=== PATIENT | female | born 1995 | race Caucasian/White ===

== ENCOUNTER 2022-08-18 12:33 | Emergency (ER) | payer MEDICAID, SELFPAY ==
[2022-08-18 13:40] VITALS: BP 123/76; PULSE 68; RESP 18; TEMP 36.8; O2SAT 99; BMI 25.0
--- NOTE | 2022-08-18 13:56 | EXP.UTC ---
Discharge Plan Disposition Patient Disposition: Home, Self-Care Condition: Good Prescriptions Prescriptions: New amoxicillin 875 mg tablet 875 mg PO Q12H Qty: 20 0RF Referrals Follow up/Referrals: Monty Colon [Primary Care Provider] - See instructions Activity Restrictions/Add. Instructions Additional Instructions/Restrictions: *Monitor Temp, Over the counter Motrin or Tylenol as directed/as needed Tylenol every 4 hours and Motrin every 6 hours (as long as your family doctor has told you that you can take it) for fever or pain. and straight to ER if unable to lower temp less than 101.0 after medication given *Warm salt water gargles may help to soothe the throat *Throat Lozenges? *Warm fluids like tea with honey may help to soothe the throat? *Sleep elevated *Humidifier/Vaporizer Take medication as prescribed Follow up IMMEDIATELY for new or worsening symptoms or no Noticeable improvement over the next 48-72 hours. 911 for difficulty breathing or swallowing Clinical Impressions Clinical Impression: Otitis media Instructions Patient Instructions: Middle Ear Infection, Amoxicillin Discharge ED Provider: Shannon Mcintosh [facility] General Stated complaint: Ear pain both ears Time Seen by Provider: 08/18/22 13:56 History of Present Illness Provider Complaint: Patient states that she has been having bilateral ear pain for several days that has continued to get worse States that she used some left over ear drops but hasnt help much States that today her left ear was feeling worse so she came in Related Data Previous Rx's Medication Instructions Recorded amoxicillin 875 mg tablet 875 mg PO Q12H #20 tabs 08/18/22 Allergies Allergy/AdvReac Type Severity Reaction Status Date / Time No Known Allergies Allergy Verified 08/18/22 14:01 [facility] Disclaimer: The information contained in this section may have been updated after the patient was seen, as this information can be updated by other users. Medical History (Updated 08/18/22 @ 14:05 by Shannon Mcintosh APRN) Anxiety Depression Surgical History (Updated 08/18/22 @ 14:00 by Juli Zarate RN) History of ear surgery History of tympanostomy tube placement Social History (Updated 08/18/22 @ 14:00 by Juli Zarate RN) Smoking Status: Unknown if ever smoked alcohol intake: never current occupational status: other Travel in the last 8 weeks: None ROS Obtained: Yes All systems reviewed & no additional complaints except as documented and Yes Systems reviewed as appropriate & no additional complaints except as documented Constitutional Constitutional: Reports system reviewed and no additional complaints, except as documented and Reports as per HPI ENT Ears, Nose, Mouth, and Throat: Reports system reviewed and no additional complaints, except as documented, Reports as per HPI and Reports otalgia Cardiovascular Cardiovascular: Reports system reviewed and no additional complaints, except as documented and Reports as per HPI Respiratory Respiratory: Reports system reviewed and no additional complaints, except as documented and Reports as per HPI Gastrointestinal Gastrointestingal: Reports system reviewed and no additional complaints, except as documented and as per HPI Genitourinary Female Genitourinary: Reports system reviewed and no additional complaints, except as documented and Reports as per HPI Physical Exam General General appearance: alert and in no apparent distress Expanded ENT Exam TM/Canal exam: Right TM: loss of landmarks and Bilateral TM: erythema Respiratory Respiratory exam: Present normal lung sounds bilaterally; Absent respiratory distress or wheezes Cardiovascular Cardiovascular exam: Present regular rate, normal rhythm and normal heart sounds Abdominal Exam Abdominal exam: Present soft and normal bowel sounds; Absent distention or tenderness Neurological Exam Neurological exam: P
[2022-08-18 14:01] VITALS: BP 123/76; PULSE 68; RESP 18; TEMP 36.8; O2SAT 99
== END 2022-08-18 14:03 | disposition home or self-care (01) ==
PROVIDERS: Emergency Provider Nurse Practitioner; PCP Internal Medicine
DX: H66.90 Otitis media, unspecified, unspecified ear (principal)
CPT/HCPCS: 99212; 99213; G0463

== ENCOUNTER 2025-04-27 18:06 | Emergency (ER) | payer SELFPAY ==
[2025-04-27 18:12] VITALS: BP 146/91; PULSE 99; O2SAT 95
[2025-04-27 18:15] VITALS: BP 146/91; PULSE 107; RESP 16; TEMP 36.6; O2SAT 100; BMI 20.9
--- OUTSIDE RECORDS SUMMARY | 2025-04-27 18:21 | XMS_ITS | Encounter Summary ---
Author Organization [employer] ([place], [place], [place], [place]) Address [address] [place] [address] Care Team Providers Care Perinatal Coordinator Name Role Phone Unavailable Primary Care Provider Unavailabl e Encounter Details Date Type Department Care Team (Late st Contact Info) Description 03/09/2019 Transcribed Document [facility] [place] [facility] [place] [address] ProviderCristiane MD [address] [place] [id number] Social History Tobacco Use Types Packs/Day Years Used Date Smoking Tobacco: Never Assessed Comments Unknown Sex and Gender Information Value Date Recorded Sex Assigned at Female 01/07/2022 8:18 PM CDT Legal Sex Female 6:11 PM CDT Gender Identity Female 01/07/2022 8:18 PM CDT Sexual Orientation Not on file documented as of this encounter Miscellaneous Notes * Cerner Conversion Note - Cristiane ProviderMD - 03/09/2019 4:41 AM CDT ED Discharge Entered On: 03/09/2019 4:42 EDT Performed On: 03/09/2019 4:41 EDT by Carlotta Wall Rn Discharge Process Patient Disposition : Discharge Personal Belongings With Patient : Yes Patient Education Completed : Yes Teaching Evaluation : Verbalizes understanding IV Discontinued : Not applicable Nursing Documentation Completed : Yes Carlotta Wall Rn - 03/09/2019 4:41 EDT ED Discharge Discharge To : Home with ambulatory/outpatient follow-up Mode Of Departure : Ambulatory Accompanied By : Responsible adult Discharge Instructions Reviewed With, Opportunity For Questions Given : Patient Prescriptions Given to Patient : Yes Number of Prescriptions Given : 1 Medications Given to Patient : Yes Number of Medications Given : 2 Carlotta Wall Rn - 03/09/2019 4:41 EDT documented in this encounter Plan of Treatment Not on file documented as of this encounter Visit Diagnoses Not on filedocumented in this encounter
--- OUTSIDE RECORDS SUMMARY | 2025-04-27 18:21 | XMS_ITS | Referral Summary ---
Author Organization [employer] ([place], [place], [place], [place]) Address [address] [place] [address] Care Team Providers Care Head Machinist Name Role Phone Unavailable Primary Care Provider Unavailabl e Allergies No known active allergies Medications dextroamphetami ne-amphetamine (ADDERALL XR) 10 MG 24 hr capsule Take 1 capsule (10 mg total) by mouth every morning. Max Daily Amount: 10 mg Active escitalopram oxalate (LEXAPRO) 10 MG tablet Take 1 tablet (10 mg total) by mouth daily. Active Social History Tobacco Use Types Packs/Day Years Used Date Smoking Tobacco: Never Assessed Food Insecurity Answer Date Recorded Food run out past 12 months Not on file 08/06 Food did not last past 12 months Not on file 08/20/2023 Employment Answer Date Recorded Help finding and keeping a job Not on file 0 08/20/2023 Family and Community Support Answer Jian e Recorded Help with Day to Day Activities Not on file 08/20/2023 Feeling Lonely or Isolated Not on file 08/20 Educational Attainment Answer Date Edmund rded Speak language other than Micronesian at home Not on file 08/20/2023 Want help with school or training Not on file 08/20/2023 Substance Use Answer Date Recorded Used prescription meds for non-medical reasons N ot on file 08/20/2023 Used illegal drugs past 12 months Not on file 08/20/2023 Comments Unknown Sex and Gender Information Value Date Recorded Sex Assigned at Female 01/07/2022 8:18 PM CDT Legal Sex Female 6:11 PM CDT Gender Identity Female 01/07/2022 8:18 PM CDT Sexual Orientation Not on file Last Filed Vital Signs Vital Sign Reading Time Taken Comments Blood Pressure 138/76 08/20/2023 6:05 AM EST Pulse 86 08/20/2023 6:30 AM EST Temperature - - Respiratory Rate 18 08/20/2023 5:03 AM EST Oxygen Saturation 99% 08/20/2023 6:10 AM EST Inhaled Oxygen Concentration - - Weight 59 kg (130 lb) 08/20/2023 5:03 AM EST Height 165.1 cm (5' 5 ) 08/20/2023 5:03 AM EST Body Mass Index 21.63 08/20/2023 5:03 AM EST Plan of Treatment Not on file Insurance [facility] MEDICAID
--- OUTSIDE RECORDS SUMMARY | 2025-04-27 18:21 | XMS_ITS | Clinical Summary ---
[facility] Address [address] [place] [address] Care Team Providers Care Sap Data Architect Name Role Phone Monty Colon MD Primary Care Provider [phone] Allergies No known active allergies Medications escitalopram (LEXAPRO) 10 MG tablet Take 1 tablet by mouth Daily. Active Qelbree 200 MG capsule sustained-relea se 24 hr Take 1 capsule by mouth Daily. 4 Active fluticasone (FLONASE) 50 MCG/ACT nasal spray Administer 2 sprays into the nostril(s) as directed by provider Daily. 11.1 g 4 Active busPIRone (BUSPAR) 5 MG tablet Take 1 tablet by mouth 3 times a day. 5 Active nicotine polacrilex (NICORETTE) 4 MG gum CHEW 1 GUM FOUR TIMES DAILY 5 Active Vyvanse 10 MG capsule Take 1 capsule by mouth Daily 5 Active acyclovir (ZOVIRAX) 400 MG tabletIndicatio ns:HSV (herpes simplex virus) infection Take 1 tablet by mouth Daily. 30 tablet 2 5 Active Active Problems Problem Noted Date Diagnosed Date HSV (herpes simplex virus) infection 12/08/2024 Migraine 12/08/2024 Routine gynecological examination 12/08/2024 Menorrhagia with regular cycle 12/08/2024 Acute right flank pain 08/23/2024 Assessment & Plan (08/23/2024 12:22 PM EST): 3-day history of progression of right flank pain rating to her abdomen, initially intermittent now persistent and quite severe, worse with movement, associated in the last evening with fever spikes and dry heaves, single episode of diarrhea yesterday prior to that having 4 to 5-day history of some constipation. She noted urgent treatment center yesterday where she reportedly had some pyuria and microscopic hematuria, was started empirically on Cipro 500 mg twice daily. Exam today revealing significant flank pain to percussion with significant right-sided abdominal pain. Clinical concern for an acute pyelonephritis with or without right-sided ureterolithiasis. I did discuss case with emergency room physician at [facility] will have her seen promptly for appropriate workup, noting I did not repeat any testing today given ER evaluation pending. Right lateral abdominal pain 08/23/2024 Assessment & Plan (08/23/2024 12:22 PM EST): Refer to above Pyuria 08/23/2024 Assessment & Plan (08/23/2024 12:23 PM EST): Refer to above Microscopic hematuria 08/23/2024 Assessment & Plan (08/23/2024 12:22 PM EST): Refer to above Non-recurrent acute suppurat swati otitis media of left ear without spontaneous rupture of tympanic membrane 07/01/2024 Acute non-recurrent pansinusitis 07/01/2024 Assessment & Plan (07/01/2024 5:52 PM EST): Patient with several weeks of sinus congestion, now with thick mucus production, sinus tenderness on palpation, bilateral ear pain and sinus headache. She has not used any conservative measures [id number]. On physical exam she is noted to have both a pansinusitis and left suppurative otitis media without perforation. Will treat both conditions empirically with 7-day course of twice daily Augmentin. Also treating inflammation with Flonase nasal steroid 2 sprays each nostril once daily. Patient to advise if no improvement Encounter for general adult medical examination with abnormal findings 07/22/2023 Assessment & Plan (07/22/2023 1:11 PM EST): Generally very healthy 27-year-old female, known history of ADHD being managed with medication successfully, ex-cigarette smoker now vaping nicotine attempting to stop, periodic health maintenance up-to-date including Pap smear and breast exam through [facility] in 09/2022, vaccines recommend including influenza and COVID-19, obtaining recommended screening labs for immunity including MMR varicella and hepatitis B. Documentation of patient having had a complete physical today will be faxed to her employer, as well as copy given to patient. Vaping nicotine dependence, tobacco product 07/06 Overview (10/14/2023): No longer using per pt 10/14/2023 Assessment & Plan (07/22/2023 1:13 PM EST): Previous cigarette smoker now vaping nicotine, attempting to stop. I applauded her efforts. We did discuss health risks Encounter for screening examination for infectio us disease 07/22/2023 Assessment & Plan (07/22/2023 1:11 PM EST): Employer requires screening for immunity to MMR varicella and hepatitis B. 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 I did suggest patient discuss with psychiatric provider whether she might be a candidate for Adderall XR for simplicity. 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 Started @ 28 weeks per patient request. History of gestational hypertension 01/03/2022 Overview (01/03/2022): bASA starting 12wk Resolved Problems Problem Noted Date Diagnosed Date Resolved Date 6 weeks follow-up 09/18/2022 12/08/2024 19 weeks gestation of 03/22/2022 05/23/2022 16 weeks gestation of 02/26/2022 05/23/2022 8 weeks gestation of 01/03/2022 05/23/2022 follow-up 08/07/2020 022 38 weeks gestation of 07/17/2020 01/03/2022 (spontaneous vaginal delivery) 06/24/2020 01/03/2022 06/21/2020 06/24/2020 34 weeks gestation of 05/22/2020 06/24/2020 24 weeks gestation of 03/16/2020 06/24/2020 Immunizations Immunization Administration Dates Next Due COVID-19 (MODERNA) 1st,2nd,3 rd Dose Monovalent 10/02/2020 DTP / HiB 04/04/1996,02/04/1996,1995 Fluzone (or Fluarix & Flulav al for VFC) >6mos 07/22/2023 Hep B, Adolescent or Pediatric 04/04/1996 Hep B, Unspecified 1995 OPV 04/04/1996,02/04/1996,1995 Tdap 05/23/2022 Varicella 04/26/1999 Family History Medical History Relation Name Comments No Known Problems Father Cancer Maternal Grandfather Leroy Diabetes Maternal Grandfather Leroy Cancer Maternal Grandmother Riya Colon cancer Maternal Grandmother Riya No Known Problems Mother Diabetes Other Family History Breast cancer Paternal Grandmother Cancer Paternal Grandmother Osteoporosis Neg Hx Ovarian cancer Neg Hx Uterine cancer Neg Hx Relation Name Status Comments Father Alive Maternal Grandfather Leroy Maternal Grandmother Riya Mother Alive Other Family History Paternal Grandmother Social History Tobacco Use Types Packs/Day Years Used Date Smoking Tobacco: Former Cigarettes 0.5 7 2 016 - 12/04/2021 Smokeless Tobacco: Never Tobacco Cessation:Counseling Given: Not Answered Alcohol Use Standard Drinks/Week Comments Yes 0 (1 standard drink = 0.6 oz pur e alcohol) rarely AUDIT-C Answer Date Recorded Q1: How often do you have a drink containing alcohol? Never 07/29/2022 Q2: How many drinks containi ng alcohol do you have on a typical day when you are drinking? Patient does not drink 3 Q3: How often do you have si x or more drinks on one occasion? Never 07/29/2022 Overall Financial Resource Strain (CARDIA) Answe r Date Recorded How hard is it for you to pa y for the very basics like food, housing, medical care, and heating? Not hard at all 04/14/2020 PHQ-2 Answer Date Recorded Retired PHQ-9: Brief Depression Severity Measure Score 0 10/21/2022 [facility] - Occupational Stress Questionnaire Answer Date Recorded Do you feel stress - tense, restless, nervous, or anxious, or unable to sleep at night because your mind is troubled all the time - these days? Not at all 04/14/2020 Exercise Vital Sign Answer Date Recorde d On average, how many days pe r week do you engage in moderate to strenuous exercise (like a brisk walk)? Patient declined On average, how many minutes do you engage in exercise at this level? Patient declined 04/14/2020 Hunger Vital Sign Answer Date Recorded Within the past 12 months, y ou worried that your food would run out before you got the money to buy more. Never true 04/14/20 20 Within the past 12 months, t he food you bought just didn't last and you didn't have money to get more. Never true 04/14/2020 PRAPARE - Transportation Answer Date Re corded In the past 12 months, has l ack of transportation kept you from medical appointments or from getting medications? No 04/05 In the past 12 months, has l ack of transportation kept you from meetings, work, or from getting things needed for daily living? No 04/14/2020 [place] Depression Scale Answer Date Recorded [place] Depression Scale Total 6 09/18/2022 The thought of harming myself has occurred to me . Unrecognized value 09/18/2022 Abuse Screen Answer Date Recorded Feels Unsafe at Home or Work/School no 07/29/2022 Feels Threatened by Someone no 07/07 Does Anyone Try to Keep You From Having Contact with Others or Doing Things Outside Your Home? no 07/29/2022 Physical Signs of Abuse Present no 07/29/2022 Housing Stability Answer Date Recorded Current Living Arrangements home 07/07 Potentially Unsafe Housing Conditions Not on anali e 07/29/2022 Disabilities Answer Date Recorded Difficulty Concentrating, Remembering or Making Decisions no 07/29/2022 Difficulty Managing Errands Independently no 07/29/2022 PHQ-2 Answer Date Recorded Patient Health Questionnaire-2 Score 0 08/23/2024 Comments No Sex and Gender Information Value Date Recorded Sex Assigned at Not on file Legal Sex Female 10:07 AM EST Gender Identity Not on file Sexual Orientation Not on file 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 Not on file Not on file Last Filed Vital Signs Vital Sign Reading Time Taken Comments Blood Pressure 128/78 12/08/2024 1:24 PM EDT Pulse 63 09/16/2024 10:54 AM EDT Temperature 36.6 C (97.8 F) 08/23/2024 11:43 AM EST Respiratory Rate 18 09/18/2022 1:53 PM EDT Oxygen Saturation 98% 09/16/2024 10:54 AM EDT Inhaled Oxygen Concentration - - Weight 59.9 kg (132 lb) 12/08/2024 1:24 PM EDT Height 170.2 cm (5' 7 ) 12/08/2024 1:24 PM EDT Body Mass Index 20.67 12/08/2024 1:24 PM EDT Plan of Treatment Health Maintenance Due Date Last Done Comments ANNUAL PHYSICAL 07/22/2024 07/22/2023 INFLUENZA VACCINE 02/03/2025 07/22/2023, , 04/17/2015 Annual Gynecologic Pelvic and Breast Exam 12/09/2025 12/08/2024, 09/18/2022, 08/15/2019 PAP SMEAR 12/09/2027 12/08/2024, 06/0 11/2024, 10/14/2023, Additional history exists TDAP/TD VACCINES (2 - Td or Tdap) 05/23/2032 05/23/2022 HEPATITIS C SCREENING Completed 01/03/2022 MAMMOGRAM Discontinued 11/25/2023 CHLAMYDIA SCREENING Discontinued 12/08/2024, 10/14/2023, 01/03/2022 Pneumococcal Vaccine 0-49 Aged Out No longer eligible based on patient's age to complete this topic Procedures Procedure Name Priority Date/Time Associated Diagnosis Comments LIQUID-BASED PAP SMEAR WITH HPV GENOTYPING IF ASCUS, [facility] (TY,COR,MAD) Routine 12/08/2024 2:04 PM EDT HSV (herpes simplex virus) infection H/O LEEP Routine gynecological examination Menorrhagia with regular cycle OBSTETRIC PANEL Routine 01/03/2022 12:19 PM EDT 8 weeks gestation of from Last 3 Months or Most Recently Relevant to Health Maintenance Results * LIQUID-BASED PAP SMEAR WITH HPV GENOTYPING IF ASCUS (TY,COR,MAD) (12/08/2024 2:04 PM EDT) Reference Lab Report [facility] [address] [place] [address] or [phone] Monty Morales M.D., Spectrographic Analyst PATIENT NAME LABORATORY NO. 651 ANGIE MAY. [id number] AGE SEX SSN CLIENT REF # [id number] 29 1995 F [id number] Lenka CHAVIRA REQUESTING [employer] [place] [address] FELICITAS FREDERICK DATE COLLECTED DATE RECEIVED DATE REPORTED 12/08/2024 12/08/2024 12/14/2024 ThinPrep Pap with [facility] DIAGNOSIS: Epithelial cell abnormality. (LSIL) Low Grade Squamous Intraepithelial Lesion. Professional interpretation rendered by Monty Morales M.D., F.C.A.P. at [facility], [address], [place] [address]. SPECIMEN ADEQUACY: SATISFACTORY FOR EVALUATION Transformation zone is absent or insufficient. SOURCE OF SPECIMEN: CERVICAL/ENDOCERVI WILLI SLIDES: 1 CLINICAL HISTORY: Last pap 10/14/2023 negative -HPV HSV (herpes simplex virus) infection H/O LEEP Routine gynecological examination Menorrhagia with regular cycle Chlamydia / Gonorrhea CHLAMYDIA TRACHOMATIS: Negative NEISSERIA GONORRHOEAE: Negative The Aptima Combo 2 assay is a target amplification nucleic acid probe test that utilizes target capture for the in vitro qualitative detection and differentiation of ribosomal RNA from Chlamydia trachomatis and Neisseria gonorrhoeae to aid in the diagnosis of chlamydial and gonococcal disease using the Dougherty system. Trichomonas TRICHOMONAS VAGINALIS: Negative The Aptima Trichomonas vaginalis assay is an in vitro qualitative nucleic acid amplification test for the detection of ribosomal RNA to aid in the diagnosis of trichomoniasis. Sendout Ancillary Vaginosis Tests BECCA GLABRATA: Negative BECCA PARAPSILOSIS: Negative BECCA TROPICALIS: Negative MD BECCA ALBICANS: Negative COMMENT: The above results are intended for medical diagnosis and treatment purposes only. Results from this assay (s) should be interpreted in conjunction with other laboratory and clinical data. The test is not intended to differentiate carriers of the organism from those with active infections. Therapeutic success or failure cannot be assessed using this test because DNA may persist following antimicrobial therapy. Nucleic acid base changes or mutations can result in false negative reactions. This test was developed and its performance characteristics determined by [facility] It has not been cleared or approved by the U.S. Food and Drug Administration. The FDA has determined that such clearance or approval is not necessary. [facility] ([facility]) is located in [place], [place] DOG BATHER: HUI HEALY (ASCP) REVIEWED, DIAGNOSED AND ELECTRONICALLY SIGNED BY: Monty Morales M.D., F.C.A.P. CPT CODES: 60965, [id number], [id number], [id number], [id number], [id number] 12/14/2024 12:46 PM EDT [facility] ThinPrep Vial Cervix uteri structure / Unknown Collection / Unknown 12/08/2024 2:04 PM EDT 12/08/2024 2:04 PM EDT us Felicitas Luis Angel Frederick MD PATHOLOGY/CYTOLOGY OR DERABLES Final Result [facility]
[address] [place] [address], * Obstetric Panel (01/03/2022 12:19 PM EDT) Hepatitis B Surface Ag Negative Negative [facility] Hep C Virus Ab 0.1 0.0 - 0.9 s/co ratio [facility] Comment: Negative: < 0.8 Indeterminate: 0.8 - 0.9 Positive: > 0.9 HCV antibody alone does not differentiate between previous resolved infection and active infection. The CDC and current clinical guidelines recommend that a positive HCV antibody result be followed up with an HCV RNA test to support the diagnosis of acute HCV infection. [facility] offers Hepatitis C Virus (HCV) RNA, Diagnosis, JAMES (964324) and Hepatitis C Virus (HCV) Antibody with reflex to Quantitative Real-time PCR (110455). RPR Non Reactive Non Reactive [facility] Rubella Antibodies, IgG 2.82 Immune >0.99 index [facility] Comment: Non-immune <0.90 Equivocal 0.90 - 0.99 Immune >0.99 ABO Type O [facility] Rh Factor Positive [facility] Comment: Please note: Prior records for this patient's ABO / Rh type are not available for additional verification. Antibody Screen Negative Negative [facility] WBC 6.1 3.4 - 10.8 x10E3/uL [facility] RBC 4.25 3.77 - 5.28 x10E6/uL [facility] Hemoglobin 12.2 11.1 - 15.9 g/dL [facility] Hematocrit 37.4 34.0 - 46.6 % [facility] MCV 88 79 - 97 fL [facility] MCH 28.7 26.6 - 33.0 pg [facility] MCHC 32.6 31.5 - 35.7 g/dL [facility] RDW 11.8 11.7 - 15.4 % [facility] Platelets 292 150 - 450 x10E3/uL [facility] Neutrophil Rel % 61 Not Estab. % [facility] Lymphocyte Rel % 28 Not Estab. % [facility] Monocyte Rel % 7 Not Estab. % [facility] Eosinophil Rel % 2 Not Estab. % [facility] Basophil Rel % 1 Not Estab. % [facility] Neutrophils Absolute 3.8 1.4 - 7.0 x10E3/uL [facility] Lymphocytes Absolute 1.7 0.7 - 3.1 x10E3/uL [facility] Monocytes Absolute 0.4 0.1 - 0.9 x10E3/uL [facility] Eosinophils Absolute 0.1 0.0 - 0.4 x10E3/uL [facility] Basophils Absolute 0.0 0.0 - 0.2 x10E3/uL [facility] Immature Granulocyte Rel % 1 Not Estab. % [facility] Immature Grans Absolute 0.0 0.0 - 0.1 x10E3/uL [facility] Blood 01/03/2022 12:1 9 PM EDT 01/03/2022 Narrative [facility]) - 01/04/2022 8:11 AM EDT Performed at: - [facility] [address] [place] [address] [id number] Commutator Assembler: Arthur Douglas PhD, Phone: [phone] Patient Fasting: N Felicitas Frederick MD LAB BLOOD ORDERABLES Final Result [facility]) [address] [place] [address], [facility] [address] [place] [address], from Last 3 Months or Most Recently Relevant to Health Maintenance Insurance [employer] MEDICAID [place] Advance Directives * CPR (Attempt to Resuscitate) (Latest Code Status on File) Date Activated Date Inactivated Comments 07/29/2022 8:30 PM 07/31/2022 3:53 PM Question Answer Comments Code Status (Patient has no pulse and is not breathing): CPR (Attempt to Resuscitate) Medical Interventions (Patie nt has pulse or is breathing): Full * CPR (Attempt to Resuscitate) Date Activated Date Inactivated Comments 06/23/2020 1:28 AM 06/24/2020 2:42 PM Question Answer Comments Code Status (Patient has no pulse and is not breathing): CPR (Attempt to Resuscitate) Medical Interventions (Patie nt has pulse or is breathing): Full * CPR (Attempt to Resuscitate) Date Activated Date Inactivated Comments 06/21/2020 6:07 PM 06/23/2020 1:28 AM Question Answer Comments Code Status (Patient has no pulse and is not breathing): CPR (Attempt to Resuscitate) Medical Interventions (Patie nt has pulse or is breathing): Full Care Teams Sap Data Architect Relationship Specialty Start Date End Date Monty Colon MD [address] [place] [address] [place] [id number] PCP - General Internal Medicine 07/03/16
--- OUTSIDE RECORDS SUMMARY | 2025-04-27 18:21 | XMS_ITS | Clinical Summary ---
Author Organization Healthcare Address [address] [place] [address] Care Team Providers Care Phonograph Mechanic Name Role Phone Monty Colon MD Primary Care Provider [phone] Allergies No known active allergies Immunizations Immunization Administration Dates Next Due DTP / HiB 04/04/1996,02/04/1996,1995 Hep B, Adolescent or Pediatric 04/04/1996 Hep B, Unspecified 1995 Influenza, Unspecified 04/22/2016,04/17/2015 Influenza, injectable, quadr ivalent, preservative free 07/22/2023 OPV 04/04/1996,02/04/1996,1995 Tdap 05/23/2022 Varicella 04/26/1999 Social History Tobacco Use Types Packs/Day Years Used Date Smoking Tobacco: Never Assessed Comments Unknown Sex and Gender Information Value Date Recorded Sex Assigned at Not on file Legal Sex Female 6:11 PM EDT Gender Identity Not on file Sexual Orientation Not on file Plan of Treatment Health Maintenance Due Date Last Done Comments [facility]-Depression Screening 1995 [facility]-/Child/Adol SDOH Screenings 1995 [facility]-Hepatitis B Vaccines (3 of 3 - 3-dose series) 05/30/1996 04/04/1996, 1995 [facility]-IPV Vaccines (4 of 4 - 4-dose series) 1999 04/04/1996, 02/04/1996, 1995 [facility]-Varicella Vaccines (2 of 2 - 2-dose childhood series) 1999 04/26/1999 [facility]- SDOH Screenings 09/28/2013 [facility]-Adult SDOH Screenings 09/28/2013 [facility]-Pap Smear 09/28/2016 HPV Vaccines (1 - 3-dose SCDM series) 09/28/2022 [id number] Vaccine (2 - season) 2025 10/02/2020 [facility]-Influenza Vaccine (#1) 03/06/202507/22, 04/22/2016, 04/17/2015 [facility]-DTaP,Tdap,and Td Vaccines (5 - Td or Tdap) 05/23/2032 05/23/2022, 04/04/1996, 02/04/1996, Additional history exists [facility]-Zoster Vaccines (1 of 2) 09/28/2045 04/26/1999 [facility]-HIB Vaccines Aged Out 04/04/1996, 07/1995, 1995 No longer eligible based on patient's age to complete this topic [facility]-Hepatitis A Vaccines Aged Out No longer eligible based on patient's age to complete this topic [facility]-Pneumococcal Vaccine: Pediatrics (0 to 5 Years) and At-Risk Patients (6 to 49 Years) Aged Out No longer eligible based on patient's age to complete this topic [facility]-Rotavirus Vaccines Aged Out No lo nger eligible based on patient's age to complete this topic Insurance MEDICAID Care Teams Phonograph Mechanic Relationship Specialty Start Date End Date Monty Colon MD [address] [place] [address] [place] [id number] PCP - General 11/16/20
--- OUTSIDE RECORDS SUMMARY | 2025-04-27 18:21 | XMS_ITS | Encounter Summary ---
Author Organization [employer] ([place], [place], [place], [place]) Address [address] [place] [address] Care Team Providers Care Glass Cut Off Supervisor Name Role Phone Unavailable Primary Care Provider Unavailabl e Encounter Details Date Type Department Care Team (Late st Contact Info) Description 03/09/2019 Transcribed Document [facility] [place] Family Medicine [facility] [place] [address] ProviderCristiane MD [address] [place] [id number] Social History Tobacco Use Types Packs/Day Years [...] Conversion Note - Cristiane ProviderMD - 03/09/2019 4:29 AM CDT Patient: ANTONI MAY Age: 23 years Sex: Female : 1995 Associated Diagnoses: Left otitis externa Author: ALBINO BALL MD Basic Information Additional information: Chief Complaint from Nursing Triage Note : Chief Complaint 03/09/2019 3:43 EDT Chief Complaint Pt complains of left ear pain x 6 days. Has been seen by ENT but pain continues to worsen . History of Present Illness The patient presents with ear pain. The onset was 6 days ago. The course/duration of symptoms is worsening. Location: Left ear(s). The character of symptoms is pain, swelling, hearing loss and degree: moderate. The exacerbating factor is none. The relieving factor is none. Risk factors consist of none. Prior episodes: none. Therapy today: prescription medications including Ciprodex, augmentin, ibuprofen . Associated symptoms: none. Review of Systems Constitutional symptoms: No fever, ENMT symptoms: Ear pain. Health Status Allergies: Allergic Reactions (Selected) No Known Allergies. Past Medical/ Family/ Social History Surgical history: No active procedure history items have been selected or recorded.. Family history: No family history items have been selected or recorded.. Social history: Social & Psychosocial Habits No Data Available . Problem list: No qualifying data available . Physical Examination Vital Signs Vital Signs/Vital Measures 03/09/2019 3:43 EDT Systolic Blood Pressure 155 mmHg HI Diastolic Blood Pressure 91 mmHg HI Temperature Source Oral Temperature Mode Fahrenheit Temperature, Fahrenheit 97.7 Deg F Clinical Temperature, C 36.5 Deg C Peripheral Pulse Rate 92 bpm Respiratory Rate 16 Breaths/Min Oxygen Therapy Mode Room air . Skin: Warm, no rash. Ears, nose, mouth and throat: Patient is significant erythema and swelling of the external auditory canal. Tympanic membrane is partially visualized. Appears to be ruptured. Preauricular lymph node is enlarged. No lesions.. Medical Decision Making Differential Diagnosis: Otitis media, otitis externa, swimmer's ear, ruptured tympanic membrane. Rationale: 23-year-old female presenting to the emergency department with left-sided ear pain. Patient is evidence of otitis externa. Patient would see ENT. She is already on Ciprodex as well as Augmentin. Patient We'll be given analgesics in the emergency department. She needs to continue with her full course of antibiotics and eardrops. She was given strict precautions to maintain clean and dry external ear. Patient needs to follow-up with ENT in 24 hours. Patient be discharged short course of analgesics. Given strict return precautions. Verbalized understanding.. Documents reviewed: Emergency department nurses' notes. Impression and Plan Diagnosis Left otitis externa - Discharge, Medical Plan Condition: Improved. Disposition: Discharged Admit/Transfer/Discharge: Discharge (Order): Start: 03/09/2019 4:33 EDT, Discharge to: Home. Prescriptions: Prescription Software Developer Intern Pharmacy: [facility] 7.5 mg-325 mg oral tablet (Prescribe): 1 Tab, Oral, Q6H, PRN: for pain, 8 Tab, 0 Refill(s). Patient was given the following educational materials: Otitis Externa. Follow up with: ALEXI WHITE Within 2 to 3 days; GEENA RIVERA Within 2 to 3 days. Counseled: Patient, Family, Regarding diagnosis, Regarding diagnostic results, Regarding treatment plan, Regarding prescription, Patient indicated understanding of instructions. documented in this encounter Plan of Treatment Not on file documented as of this encounter Visit Diagnoses Not on filedocumented in this encounter
--- OUTSIDE RECORDS SUMMARY | 2025-04-27 18:21 | XMS_ITS | Encounter Summary ---
Author Organization [employer] ([place], [place], [place], [place]) Address [address] [place] [address] Care Team Providers Care Senior Mobile Web Developer Name Role Phone Unavailable Primary Care Provider Unavailabl e Encounter Details Date Type Department Care Team (Late st Contact Info) Description 03/09/2019 Transcribed Document [facility] [place] Family Medicine [facility] [place], [place] [id number] ProviderCristiane MD [facility] [place] [address] Social History Tobacco Use Types Packs/Day Years [...] Conversion Note - Cristiane ProviderMD - 03/09/2019 3:33 AM CDT ED Triage Entered On: 03/09/2019 3:46 EDT Performed On: 03/09/2019 3:43 EDT by Dominick Maddox, Rn-Charge ED Triage Across the Room Triage Date/Time : 03/09/2019 3:43 EDT Chief Complaint : Pt complains of left ear pain x 6 days. Has been seen by ENT but pain continues to worsen Dominick Maddox, Rn-Charge - 03/09/2019 3:43 EDT DCP GENERIC CODE Tracking Acuity : 3 - Urgent Tracking Group : [facility] Dominick Maddox, Rn-Charge - 03/09/2019 3:43 EDT Mode of Arrival : Ambulatory Transported to ED by : Private vehicle To Room Via : Ambulate Accompanied By : Mother ED Vital Signs : Document Height & Weight : Document ED Allergies : Document ED Infection Control : No ED Reason for Visit : Document Tried to Harm Yourself in the Past? : No Thoughts of Harming/Killing Yourself : No Recent Thoughts of Harming/Killing Others : No Restaurant Server Needed : No Dominick Maddox Rn-Charge - 03/09/2019 3:43 EDT Infectious Disease History Infectious Disease History : None Fever/Chills Last 48 Hours : Yes Experiencing Infectious Disease Symptoms : No symptoms Travel To Regions with Travel Advisories : No Travel Outside [place] Within Last 30 Days : No Contact With Traveler to Advisory Region : No Tuberculosis Symptoms : None Dominick Maddox Rn-Charge - 03/09/2019 3:43 EDT Vital Signs ED Temperature Source : Oral Temperature Mode : Fahrenheit Temperature, Fahrenheit : 97.7 Deg F ED Pain : Yes Clinical Temperature, C : 36.5 Deg C Oxygen Therapy Mode : Room air Peripheral Pulse Rate : 92 bpm Respiratory Rate : 16 Breaths/Min Systolic Blood Pressure : 155 mmHg (HI) Diastolic Blood Pressure : 91 mmHg (HI) Dominick Maddox Rn-Charge - 03/09/2019 3:43 EDT Allergy (As Of: 03/09/2019 03:46:44 EDT) Allergies (Active) No Known Allergies Estimated Onset Date: Unspecified ; Created By: Dominick Maddox Rn-Charge; Reaction Status: Active ; Category: Drug ; Substance: No Known Allergies ; Type: Allergy ; Updated By: Dominick Maddox Rn-Charge; Reviewed Date: 03/09/2019 3:45 EDT Diagnosis Control ED (As Of: 03/09/2019 03:46:44 EDT) Diagnoses(Active) Ear pain Date: 03/09/2019 ; Diagnosis Type: Reason For Visit ; Confirmation: Complaint of ; Clinical Dx: Ear pain ; Classification: Medical ; Clinical Service: Non-Specified ; Code: PNED ; Probability: 0 ; Diagnosis Code: [id number] ED Height and Weight Height Source : Stated Height Entry Format : [place] Height, Feet : 5 ft(Converted to: 152 cm, 60 Inch) Height, Inches : 7 Inch(Converted to: 0 ft 7 Inch, 17.78 cm) Clinical Height : 170.18 cm Weight Source, ED : Stated [place] Body Weight (IBW) : 61.16 kg Dominick Maddox, Rn-Charge - 03/09/2019 3:43 EDT Estimated Weight Type of Weight Measurement Est : [place] Weight, est lb : 160 lb(Converted to: 73 kg) Estimated Clinical Dosing Weight : 72.73 kg Dominick Maddox Rn-Charge - 03/09/2019 3:43 EDT Pain Assessment Pain Assessment : Initial assessment Pain Scale Used : 0-10 Scale Location : Ear, left Dominick Maddox Rn-Charge - 03/09/2019 3:43 EDT Pain Scale Intensity : 8 Dominick Maddox Rn-Charge - 03/09/2019 3:43 EDT Image 4 - Images currently included in the form version of this document have not been included in the text rendition version of the form. documented in this encounter Plan of Treatment Not on file documented as of this encounter Visit Diagnoses Not on filedocumented in this encounter
--- OUTSIDE RECORDS SUMMARY | 2025-04-27 18:21 | XMS_ITS | Encounter Summary ---
Author Organization [employer] ([place], [place], [place], [place]) Address [address] [place] [address] Care Team Providers Care Seed Corn Production Manager Name Role Phone Unavailable Primary Care Provider Unavailabl e Encounter Details Date Type Department Care Team (Late st Contact Info) Description 03/09/2019 Transcribed Document [facility] [place] [facility] [place] [address] ProviderCristiane MD [facility] [place] [address] Social History Tobacco Use Types Packs/Day Years [...] ProviderMD - 03/09/2019 3:33 AM CDT ED Assessment Entered On: 03/09/2019 3:59 EDT Performed On: 03/09/2019 3:58 EDT by LAY MEZA RN ED General-Functional Assess Communication Barrier : None Primary Language : Latvian Any Spiritual/Cultural Needs or Requests : No Currently in Unsafe Situation : No LAY MEZA RN - 03/09/2019 3:58 EDT Social Habits Smoking Status : 10 or more cigarettes (1/2 pack or more)/day in last 30 days Smokeless Tobacco Status : Never Desires Tobacco Cessation Medication : No Reason for No Tobacco Cessation Medication : ED/procedural patient only Desires Tobacco Cessation Calc : 1 LAY MEZA RN - 03/09/2019 3:58 EDT Social History (As Of: 03/09/2019 03:59:34 EDT) EENT Assessment EENT Assessment WDL : WDL with exceptions (Comment: pt reports L ear pain x 6 days. pt has seen an ENT specilaist and dx c swimmers ear. was Rx amoxicillin and ear drops. pt states everything makes it feel worse. pt rates pain 8/10. pt reports h/o surgey on L ear. [LAY MEZA RN - 03/09/2019 3:58 EDT] ) Ear Assessment, Left : Drainage, Hearing deficit, Pain, Redness LAY MEZA RN - 03/09/2019 3:58 EDT Respiratory Respiratory Assessment WDL : WDL with exceptions Cough : Productive LAY MEZA RN - 03/09/2019 3:58 EDT Musculoskeletal Musculoskeletal Assessment WDL : WDL with exceptions Musculoskeletal Assessment Comment : pt reports bodyaches x 3 days. LAY MEZA RN - 03/09/2019 3:58 EDT documented in this encounter Plan of Treatment Not on file documented as of this encounter Visit Diagnoses Not on filedocumented in this encounter
--- OUTSIDE RECORDS SUMMARY | 2025-04-27 18:21 | XMS_ITS | Encounter Summary ---
Author Organization [employer] ([place], [place], [place], [place]) Address [address] [place] [address] Care Team Providers Care Measurement Supervisor Name Role Phone Unavailable Primary Care Provider Unavailabl e Encounter Details Date Type Department Care Team (Late st Contact Info) Description 03/09/2019 Transcribed Document [facility] [place] [facility] [place] [address] ProviderCristiane MD [facility] [place] [address] Social History Tobacco Use Types Packs/Day Years Used Date Smoking Tobacco: Never Assessed Comments Unknown Sex and Gender Information Value Date Recorded Sex Assigned at Female 01/07/2022 8:18 PM CDT Legal Sex Female 6:11 PM CDT Gender Identity Female 01/07/2022 8:18 PM CDT Sexual Orientation Not on file documented as of this encounter Miscellaneous Notes * Cerner Conversion Note - Historical ProviderMD - 03/09/2019 4:35 AM CDT Electronically signed by Sadie [facility] Conversion Chiropractic Doctor Bienvenido at 10/19/2022 10:29 AM CDT documented in this encounter Plan of Treatment Not on file documented as of this encounter Visit Diagnoses Not on filedocumented in this encounter
--- OUTSIDE RECORDS SUMMARY | 2025-04-27 18:21 | XMS_ITS | Clinical Summary ---
Author Organization [employer] ([place], [place], [place], [place]) Address [address] [place] [address] Care Team Providers Care Room Service Food Server Name Role Phone Unavailable Primary Care Provider [...] Date Edmund rded Speak language other than Moldovan at home Not on file 08/20/2023 Want [...] 08/20/2023 5:03 AM EST Plan of Treatment Health Maintenance Due Date Last Done Comments Depression Screening (12+) 2007 Tobacco Cessation Counseling and Screening (12+) 2007 HIV Screening 09/28/2010 Hepatitis C Screening 09/28/2013 Pap Smear 09/28/2016 COVID-19 VACCINE ( - 2024- season) 2025 10/02/2020 Influenza Vaccine (#1) 2025 DTAP/TDAP/TD VACCINES (5 - Td or Tdap) 05/23/2032 05/23/2022, 04/04/1996, 02/04/1996, Additional history exists Pneumococcal Vaccine: 0-49 Years Aged Out No longer eligible based on patient's age to complete this topic Insurance [facility] MEDICAID
--- OUTSIDE RECORDS SUMMARY | 2025-04-27 18:21 | XMS_ITS | Encounter Summary ---
[facility] Organization [facility] Address [address] [place] [address] Care Team Providers Care Director Of Communications Name Role Phone Monty Colon MD Primary Care Provider [phone] Encounter Details Date Type Department Care Team (Late st Contact Info) Description 12/09/2024 Results Follow-Up [facility] [address] [place] [address] Iman Frederick MD [address] [facility] [address] [place] [address] Social History Tobacco Use Types Packs/Day Years Used Date Smoking Tobacco: Former Cigarettes 0.5 7 2 016 - 12/04/2021 Smokeless Tobacco: Never Alcohol Use Standard Drinks/Week Comments Yes 0 (1 standard drink = 0.6 oz pur e alcohol) rarely AUDIT-C Answer Date Recorded Q1: How often do you have a drink containing alcohol? Never 07/29/2022 Q2: How many drinks containi ng alcohol do you have on a typical day when you are drinking? Patient does not drink Q3: How often do you have si x or more drinks on one occasion? Never 07/29/2022 Overall Financial Resource Strain (CARDIA) Answe r Date Recorded How hard is it for you to pa y for the very basics like food, housing, medical care, and heating? Not hard at all 04/14/2020 PHQ-2 Answer Date Recorded Retired PHQ-9: Brief Depression Severity Measure Score 0 10/21/2022 [facility] Occupat ional [facility] - Occupational Stress Questionnaire Answer Date Recorded [...] things needed for daily living? No 04/14/2020 Cantril Depression Scale Answer Date Recorded Cantril Depression Scale Total 6 09/18/2022 The thought [...] file Not on file Not on file documented as of this encounter Progress Notes * Iman Frederick MD - 12/26/2024 8:26 AM EDT Needs colpo please * Iman Frederick MD - 12/15/2024 9:56 AM EDT Can HPV still be added? * Iman Frederick MD - 12/09/2024 9:29 AM EDT Hormones are normal documented in this encounter Plan of Treatment Scheduled Orders Name Type Priority Associated Diagnoses Orde r Schedule HPV GENOTYPING, [facility](TY,COR,[facility]) - , Cervix, Endocervix Microbiology Routine LGSIL on Pap smear of cervix Expected: 12/20/2024 (Approximate), Expires: 12/20/2025 documented as of this encounter Visit Diagnoses Diagnosis LGSIL on Pap smear of cervix- Primary documented in this encounter Care Teams Director Of Communications Relationship Specialty Start Date End Date Monty Colon MD [address] [place] [address] [place] [id number] PCP - General Internal Medicine 07/03/16 documented as of this encounter
--- OUTSIDE RECORDS SUMMARY | 2025-04-27 18:21 | XMS_ITS | Encounter Summary ---
Author Organization [employer] ([place], [place], [place], [place]) Address [address] [place] [address] Care Team Providers Care Call Center Director Name Role Phone Unavailable Primary Care Provider Unavailabl e Encounter Details Date Type Department Care Team (Late st Contact Info) Description 03/09/2019 Transcribed Document [facility] [place] [facility] [place] [address] ProviderCristiane MD [address] [place] [id number] Social History Tobacco Use Types Packs/Day Years Used Date Smoking Tobacco: Never Assessed Comments Unknown Sex and Gender Information Value Date Recorded Sex Assigned at Female 01/07/2022 8:18 PM CDT Legal Sex Female 6:11 PM CDT Gender Identity Female 01/07/2022 8:18 PM CDT Sexual Orientation Not on file documented as of this encounter Miscellaneous Notes * Cerner Conversion Note - Cristiane Deng MD - 03/09/2019 4:34 AM CDT [facility] [place] [id number] ANTONI MAY :1995 Visit Time:03/09/2019 Your Visit Summary Your Care Team Admitting Physician - ALBINO BALL MD PHY, UNKNOWN Attending Physician - ALBINO BALL MD Primary Care Physician - ALEXI WHITE DR Referring Physician - ALBINO BALL MD Your Diagnosis Ear pain, Ear pain Left otitis externa Medical Information You may obtain a copy of your Emergency Department visit from Medical Records by calling the hospital phone number listed above and asking to be directed to the Medical Records Department. If you had special tests, such as EKG???s or X-rays, the interpretation of your tests given to you by the Emergency Department Physician is a preliminary report. Some fractures and illnesses fail to show up on preliminary tests. These will be reviewed again and we will call you if there are any new suggestions. If your symptoms continue notify your physician. After you leave, you should follow the instructions provided. Allergies No Known Allergies Immunizations This Visit No Immunizations Found Medications What How Much When Instructions Next Dose New acetaminophen-hydrocodone (Pound 7.5 mg-325 mg oral tablet) 1 Tablet(s) Oral Every 6 Hours as needed for for pain Printed Prescription The home medications listed are only as accurate as the information you provided. Please continue taking all of your medications prescribed by your Primary Care Provider unless specifically told to change or discontinue the medication. Please direct any questions regarding your home medications to your Primary Care Provider. Take your medications faithfully. Do NOT skip medication. Do NOT stop taking medications without the direction of a physician. Carry a list of your medications with you at all times, and take this medication list with you to your first follow up visit. Report any side effects. Avoid herbal remedies unless discussed with your physician. As part of your treatment plan, your physician may have prescribed a limited course of a controlled substance. This medication may be given to help people with moderate or severe pain or for other medical conditions, but there are risks involved with treatment. Common side effects may include nausea, constipation, drowsiness, sweating, itching, dry mouth, and rash. More serious side effects may include cognitive and motor impairment, like problems with thinking, concentrating, alertness, and movement (e.g. slowed reflexes), and driving and operating heavy machinery can be dangerous. It is important for you to talk to your physician if you have these side effects or questions. These controlled substances can produce physical dependence and be habit-forming if taken for an extended period of time, which means that the body has gotten used to them and may experience withdrawal symptoms if they are abruptly stopped. Withdrawal symptoms can include runny nose, sweating, goose bumps, diarrhea, abdominal cramping, rapid heartbeat, difficulty sleeping, and nervousness. Please dispose of unused and medications per pharmacy guidance. Test Results Laboratory or Other Results This Visit (last charted value for your 03/09/2019 visit) No Laboratory or Other Results This Visit Emergency Awareness and Preventative Care STROKE is an EMERGENCY Every Minute Counts Act FAST and Check for these signs: FACE Does the face look uneven? ARM Does one arm drift down? SPEECH Does their speech sound strange? TIME Call at any sign of stroke Stroke Risk Factors Atrial Fibrillation (irregular heartbeat) Diabetes Family history of stroke Heart Disease Heavy alcohol use High Blood Pressure High Cholesterol Physical inactivity and obesity Smoking Cigarette Smoking The facts are clear, cigarette smoking will shorten your life. Smoking can cause many illnesses along the way. As a healthcare provider, we recommend that you stop smoking. Assistance with quitting is available by contacting 2-864-UFEUNOW. This is a free resource providing counseling, support, and referral. Or you may contact your personal physician. [employer] Suicide Prevention Lifeline: The National Suicide Prevention Lifeline is a national network of local crisis centers that provides free and confidential emotional support to people in suicidal crisis or emotional distress 24 hours a day, 7 days a week. Don't Wait! Stop a Heart Attack Before it Starts What is a heart attack? A heart attack is damage or to a part of the heart from severely decreased or lack of blood flow to the heart. Over time, arteries can become narrow from the buildup of fat and cholesterol, which is called plaque. The plaque can rupture causing a blood clot to form. When the blood clot forms, the artery can become severely narrowed or completely blocked, causing a heart attack. Heart attack is the leading cause of in the [place]. 85% of muscle damage occurs within the first 2 hours. Delay in the recognition of heart attack symptoms increases the chances of . Know the early symptoms of a heart attack: Nausea Feeling of fullness in chest Jaw Pain Pain that travels down one or both arms Fatigue/being tired Anxiety Back Pain Chest pressure, squeezing, or discomfort Shortness of breath Sweating, or a cold sweat Feeling of impending doom There are unusual signs of a heart attack, too! Women, the elderly, and diabetics may present with atypical symptoms: Fainting/dizziness Weakness Confusion Risk Factors for a Heart Attack Some heart disease risk factors, such as age and family history, cannot be changed. Others, like smoking and lack of exercise, can be changed. Smoking High Cholesterol High Blood Pressure Family History Obesity Age Gender (Males are at higher risk) Lack of Exercise Diabetes Diet Stress Excessive Alcohol Intake If you or someone you know is experiencing the signs and symptoms of a heart attack, DON???T DELAY. Call immediately and seek help. If someone collapses, perform CPR! Do not attempt to drive if you are having symptoms of heart attack. Hands-Only CPR Why Hands-Only CPR? Hands-Only CPR has been shown to be as effective as conventional CPR for cardiac arrests that occur outside of a hospital. Survival depends on immediately receiving CPR from someone nearby. How do you perform Hands-Only CPR? There are two easy steps: Call if you see a teen or adult collapse Push hard and fast in the center of the chest at a beat of 100 beats per minute. Save a life! 4 WAYS TO GET AHEAD OF SEPSIS SEPSIS is a MEDICAL EMERGENCY. Time matters! Infections put you and your family at risk for a life-threatening condition called sepsis. Sepsis is the body's extreme response to an infection. It is life-threatening, and without timely treatment, sepsis can rapidly lead to tissue damage, organ failure, and . Sepsis happens when an infection you already have-in your skin, lungs, urinary tract or somewhere else-triggers a chain reaction throughout your body. 1 PREVENT INFECTIONS Take good care of chronic conditions. Talk to your doctor about getting the recommended vaccines. 2 PRACTICE GOOD HYGIENE Wash your hands frequently. Keep cuts or open sores clean and covered until they are healed. 3 KNOW THE SYMPTOMS Confusion or disorientation Shortness of breath High heart rate Fever, shivering, or feeling very cold Extreme pain or discomfort Clammy or sweaty skin 4 ACT FAST Get medical care IMMEDIATELY if you suspect sepsis or if you have an infection that is not getting better or is getting worse. To learn more about sepsis and how to prevent infections, visit www.cdc.gov/sepsis. The examination and treatment you have received in the Emergency Department has been done to provide an appropriate evaluation and stabilizing treatment on an emergency basis only. Given the limited resources, it is not meant to be a substitute for complete medical care. The follow-up doctor you named will receive a copy of your records and all test reports. IT IS IMPORTANT THAT YOU SCHEDULE A FOLLOW-UP APPOINTMENT AND ARE RE-EVALUATED. You should report any new complaints, symptoms, or remaining problems at that time. IT IS IMPOSSIBLE FOR THE EMERGENCY DEPARTMENT TO RECOGNIZE AND TREAT ALL ELEMENTS OF INJURY OR ILLNESS IN A SINGLE VISIT. If you have been referred to a specialist physician, it means that we believe you may have a condition that requires the expertise of a specialist. These physicians work in partnership with the hospital and have agreed to see referred patients in their office for further evaluation. KEEP IN MIND THAT THE SPECIALIST HAS HIS/HER OWN OFFICE POLICIES WHICH MAY REQUIRE PROPER INSURANCE OR PAYMENT UP FRONT BEFORE THE SPECIALIST WILL SEE YOU. It is your responsibility to call the specialist physician to make an appointment. We do not have the ability to refer patients to specialists/physicians that work with specific insurance companies. Please be advised that all financial charges or billing practices are determined by that practice, not the hospital. If your insurance company requires that you see a specialist from their approved list, it is your responsibility to contact your insurance company to make those arrangements. It is also your responsibility to follow any other requirements of your insurance company necessary to obtain coverage for claims submitted. We will bill your insurance; however, you are responsible today for any co-pay amounts. You will receive a separate bill for any services you may have received including: emergency, radiology, or pathology physicians. Patient Name:ANTONI MAY I have received this information and was given the opportunity to ask questions. 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 Date: documented in this encounter Plan of Treatment Not on file documented as of this encounter Visit Diagnoses Not on filedocumented in this encounter
--- OUTSIDE RECORDS SUMMARY | 2025-04-27 18:21 | XMS_ITS | Encounter Summary ---
Author Organization [employer] ([place], [place], [place], [place]) Address [address] [place] [address] Care Team Providers Care Chief Radiologic Technologist Name Role Phone Unavailable Primary Care Provider Unavailabl e Encounter Details Date Type Department Care Team (Late st Contact Info) Description 03/09/2019 Transcribed Document [facility] [place] [facility] [place], [place] [id number] ProviderCristiane MD [facility] [place] [address] Social History Tobacco Use Types Packs/Day Years [...] Conversion Note - Historical ProviderMD - 03/09/2019 4:49 AM CDT ED Event Note Entered On: 03/09/2019 4:50 EDT Performed On: 03/09/2019 4:49 EDT by Carlotta Wall Rn ED Event Note ED Event Date/Time : 03/09/2019 4:49 EDT ED Description of Event : pt called Ed; reports dog ate otic solution. per [place] PACK, called Ciprodex otic solution 5 drops to Left ear QID 10mL no refills to [facility] rd. Carlotta Wall Rn - 03/09/2019 4:49 EDT Electronically signed by [facility] Conversion Motion Picture Camera Operator Cerner at 10/19/2022 10:08 AM CDT documented in this encounter Plan of Treatment Not on file documented as of this encounter Visit Diagnoses Not on filedocumented in this encounter
--- OUTSIDE RECORDS SUMMARY | 2025-04-27 18:21 | XMS_ITS | Encounter Summary ---
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 Not hard at all 04/14/2020 [facility] [place] [facility] Occup[facility] - Occupational Stress Questionnaire Answer Date Recorded [...] things needed for daily living? No 04/14/2020 [place] Depression Scale Answer Date Recorded [place] Depression Scale Total 2 06/23/2020 The thought of harming myself has occurred to me . 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
--- NOTE | 2025-04-27 18:38 | ED_ITS ---
<Statement entered by Sheron Dickerson DO - 04/29/25 00:30> I was consulted by the KATHRINE, and we discussed the complexity of problems being addressed. I approve the treatment and management plan for this patient's care in the emergency department, thus performing a substantial portion of the medical decision making. Sheron Dickerson DO Discharge Plan Disposition Patient Disposition: Home, Self-Care Condition: Good Prescriptions Prescriptions: New amoxicillin-pot clavulanate 875-125 mg tablet 1 tab PO BID 7 Days Qty: 14 0RF No Action buspirone 10 mg tablet 10 mg PO BID escitalopram oxalate [Lexapro] 10 mg tablet 10 mg PO DAILY Referrals Follow up/Referrals: Antoni Sandoval MD [Physician, Ear, Nose, Throat] - See instructions Thelma Schultz DO [Staff Physician, [facility]] - See instructions Monty Colon [Primary Care Provider, Medical] - See instructions Activity Restrictions/Add. Instructions Additional Instructions/Restrictions: Please return to the emergency department with any worsening signs or symptoms to include worsening difficulty swallowing, difficulty breathing, any worsening abdominal pain nausea or flank pain or any vomiting that is persistent please follow-up with your PCP ear nose throat doctor in [facility] in the upcoming days/weeks. Clinical Impressions Clinical Impression: Acute tonsillitis Instructions Patient Instructions: Sore Throat Print Language Print Language: Martiniquais Discharge ED Provider: Sheron Dickerson General Adult HPI General Chief complaint: Sore Throat Stated complaint: enlarged lymph nodes, sore throat, fever Time Seen by Provider: 04/27/25 18:09 Mode of Arrival: Ambulatory Source of Information: Patient and Medical Record Description of Symptoms (Recalled from ER Triage Doc. by RN): Patient states she has had fever, sore throat, states her lymph nodes in neck are enlarged. Also complaining of vague abdominal pain. Patient states she was seen at [facility], had urine checked for UTI and strep swab done, state both were negative. States she was sent to the ER to have blood work done. History of Present Illness HPI narrative: 29-year-old female presents the emergency department for a 1 day history of fatigue, malaise, myalgias, waxing and waning flank pain , bilaterally, as well as sore throat, that started last night, patient was seen in urgent care treatment facility prior to coming to the emergency department, had urinalysis performed that was unremarkable, rapid strep screens were negative. Patient admits to subjective fever chills, no cough, no chest pain no shortness of breath, no flank pain currently, no nausea no vomiting, no constipation no diarrhea no melena no hematochezia, no hematemesis, no hematuria, no vaginal bleeding no vaginal discharge, patient is a former smoker, denies any alcohol or drug use, initial triage vitals noted for tachycardia otherwise unremarkable. Other past medical history consistent with MERCEDEZ/MDD. Also of note, patient states her children , were sick 3 weeks ago with upper respiratory type symptomatology. Please note that above description of symptoms, in this electronic medical record under categorization of recalled from ER triage doctor by RN are reflective of an initial nursing assessment, however, is not reflective of my full history and physical exam that was personally taken and clarified. Consequentially, this preceding description of symptoms, which may include the patient's categorized chief complaint in the EMR, do not reflect my personal clinical impression, and the ultimate description of history of present illness and patient stated complaints should be deferred to this section of the note. Unless stated otherwise or congruent with this section of the note, additional signs, symptoms, or incongruence should be interpreted as inaccurate with my clinical impression. Onset (ago): hour(s) Related Data Home Medications ?Medication ?Instructions ?Recorded ?Confirmed buspirone 10 mg tablet 10 mg PO BID 04/27/25 escitalopram oxalate 10 mg tablet 10 mg PO DAILY 04/2704/27/25 (Lexapro) Previous Rx's ?Medication ?Instructions ?Recorded amoxicillin 875 mg-potassium 1 tab PO BID 7 days #14 t abs 04/27/25 clavulanate 125 mg tablet Allergies Allergy/AdvReac Type Severity Reaction Status Date / Time No Known Allergies Allergy Verified 04/27/25 16:56 [facility] Disclaimer: The information contained in this section may have been updated after the patient was seen, as this information can be updated by other users. Medical History Depression Anxiety Surgical History History of ear surgery History of tympanostomy tube placement Social History (Reviewed 04/27/25 @ 16:57 by LEESA Lind Smoking Status: Never smoker alcohol intake: never current occupational status: other Travel in the last 8 weeks?: None Have you lived/traveled outside [place] in past 30 days?: No Contact w/someone who lives/traveled outside US past 30 days?: No Exposure to someone with infectious disease in past 14 days?: No Do you have a fever (greater than 100.4 F or 38 C)?: No Have you tested positive for COVID-19?: No Exposed to someone with COVID-19 in past 14 days?: No Do you have a sore throat?: No Do you have a cough?: Yes Do you have any weakness?: No Do you have any diarrhea?: No Are you experiencing any unusual bleeding?: No Do you have any muscle aches/pain?: No Do you have any abdominal pain?: No Are you experiencing loss of taste or smell?: No ROS Obtained: Yes All systems reviewed & no additional complaints except as documented Physical Exam General General appearance: alert and in no apparent distress Head Head exam: atraumatic and normocephalic Eye Eye exam: Present PERRL and EOMI ENT ENT exam: Present mucous membranes moist and other (Or pharyngeal erythema, no oropharyngeal edema, there is some mild tonsillar swelling/possible exudates on the left, no uvula deviation, no airway compromise); Absent normal oropharynx Neck Neck exam: Present normal inspection Chest Chest inspection: Present normal inspection and symmetric chest wall rise Respiratory Respiratory exam: Present normal lung sounds bilaterally; Absent respiratory distress, wheezes or stridor Cardiovascular Cardiovascular exam: Present normal rhythm and tachycardia Abdominal Exam Abdominal exam: Present soft; Absent tenderness, guarding or rebound Extremities Exam Extremities exam: Present normal inspection Neurological Exam Neurological exam: Present alert and oriented X3 Psychiatric Psychiatric exam: Present normal affect Skin Skin exam: Present warm and dry Medical Decision Making Medical Records Medical records reviewed: Yes I reviewed the patient's medical records. Screening: Per USPSTF and CDC recommendations, given the prevalence of disease in our region, it is our hospital?s policy to screen for HIV and viral Hepatitis for all patients aged 18 and over and those with ongoing risk factors. Fernie Inquiry Pt receiving controlled substance: No Fernie was queried for this patient: No Vital Signs: 04/27/25 18:12 04/27/25 18:12 04/27/25 18:15 Temperature 97.8 F Temperature Source Oral Pulse Rate 99 H Pulse Rate [Right Brachial] 107 H Respiratory Rate 16 Blood Pressure 146/91 H Blood Pressure [Right Arm] 146/91 H Blood Pressure Mean 106 Blood Pressure Mean [Right Arm] 109 Blood Pressure Source [Right Arm] Automatic Cuff 02 Sat by Pulse Oximetry 95 100 Oxygen Delivery Method Room Air Lab Data Lab results reviewed: Yes I reviewed the patient's lab results. Lab Results 04/27/25 18:58: WBC 7.0, RBC 4.13 L, Hgb 12.1 L, Hct 36.2 L, MCV 87.7, MCH 29.3, MCHC 33.4, RDW 11.8, Plt Count 204, MPV 10.7 H, Neut % (Auto) 78.5, Lymph % (Auto) 13.0, Dawson % (Auto) 8.0, Eos % (Auto) 0.1, Baso % (Auto) 0.1, Neut # (Auto) 5.5, Lymph # (Auto) 0.9, Dawson # (Auto) 0.6, Eos # (Auto) 0.0, Baso # (Auto) 0.0, Sodium 134 L, Potassium 3.7, Chloride 101, Carbon Dioxide 28, Anion Gap 8.7, BUN 10, Creatinine 0.60, Estimated Creat Clear 129, Estimated GFR 118, Est GFR ( Amer) 143, Glucose 83, Calcium 8.9, Total Bilirubin 0.9, AST 16, ALT 16, Alkaline Phosphatase 75, Total Protein 8.0, Albumin 4.5, Globulin 3.5 H, Albumin/Globulin Ratio 1.3, Serum HCG, Qual Negative 04/27/25 19:03: Chlamy pneumoniae PCR Not detected, Adenovirus (PCR) Not detected, B. pertussis DNA (PCR) Not detected, Coronavirus OC43 (PCR) Not detected, Coronavirus HKU1 (PCR) Not detected, Coronavirus 229E (PCR) Not detected, SARS-CoV-2 (PCR) Not detected, Coronavirus NL63 (PCR) Not detected, Human Metapneumovir PCR Not detected, Influenza A (H1) PCR Not detected, Influ A (H1N1/09) PCR Not detected, Influenza A (H3) PCR Not detected, Influenza Type A (PCR) Not detected, Influenza Type B (PCR) Not detected, M. pneumoniae (PCR) Not detected, Parainfluenza 1 (PCR) Not detected, Parainfluenza 2 (PCR) Not detected, Parainfluenza 3 (PCR) Not detected, Parainfluenza 4 (PCR) Not detected, RSV (PCR) Not detected, Entero/Rhino (PCR) Not detected 04/27/25 18:58 04/27/25 18:58 Orders (Tests/Meds): ED MEDICATIONS Generic Name Dose Route Start Last Admin Trade Name Freq PRN Reason Stop Dose Admin Dexamethasone Sodium Phosphate 10 mg 04/27/25 21:58 Dexamethasone 4mg/Ml 1ml Vial IV 04/27/25 21:59 ONCE ONE Sodium Chloride 10 ml 04/27/25 19:37 04/27/25 19:38 Sodium Chloride 0.9% 10ml Syr (Rad Only) IV 05/27/25 19:36 10 ml NEEDED PRN Administration Maintain IV Site Discontinued Medications Generic Name Dose Route Start Last Admin Trade Name Freq PRN Reason Stop Dose Admin Acetaminophen 1,000 mg 04/27/25 18:48 04/27/25 19:45 Acetaminophen 1,000mg/100ml Vial IV 04/27/25 18:49 1,000 mg ONCE ONE Administration Sodium Chloride 1,000 mls @ 999 mls/hr 04/27/25 18:46 04/27/25 21:25 Sod Chlor 0.9% 1000ml Bag IV 04/27/25 19:46 Infused .Q1H1M ONE Infusion Iopamidol 150 ml 04/27/25 19:37 04/27/25 19:38 Iopamidol-370 (76%);100ml Bottle IV 04/27/25 19:38 150 ml ONCE ONE Administration ORDERS Category Date Time Status CT abdomen pelvis w con Stat Cat Scan 04/27/25 18:[address] soft tissue neck w con Stat Cat Scan 04/27/25 18:45 Completed Complete Blood Count Auto Diff Stat Lab 04/27/25 18:58 Completed Comprehensive Metabolic Panel Stat Lab 04/27/25 18:58 Completed Full Resp Panel w/COVID ([facility]) Routine Lab 04/27/25 19:03 Completed HCG Qualitative, Serum Stat Lab 04/27/25 18:58 Completed Throat Culture Routine Micro 04/27/25 17:19 Received Urine Culture Routine Micro 04/27/25 17:35 Received Medical Decision Narrative: 29-year-old female presents the emergency department with multiple symptomatology, see HPI for detailed past medical history, differential diagnose include but not limited to peritonsillar abscess, streptococcal pharyngitis, viral pharyngitis, acute URI, nephrolithiasis, ureterolithiasis, retropharyngeal abscess among others I discussed this patient's case with the attending physician Dr. Dickerson Will obtain basic laboratory studies, hCG qualitative, full respiratory panel, CT soft tissue neck with contrast, CT ABD and pelvis with contrast, with give IV Tylenol 1000 mg, and 1 L IV NS CBC unremarkable CMP notable for mild hyponatremia 134 hCG qualitative is negative Full respiratory panel is negative I reviewed the patient's CT soft tissue neck with contrast along with corresponding radiologic report, heterogeneous enhancement of the tonsils compatible tonsillitis hypoattenuating focus measuring 9 mm the inferior margin of the left palatine tonsil could represent early tonsillar abscess. I reviewed the patient's CT abdomen pelvis with contrast along the corresponding radiologic report, diffuse vaginal wall thickening and ill-defined fat stranding throughout the bilateral adnexa findings are nonspecific could represent pelvic venous congestion pelvic phonatory disease severe vaginitis or reactive inflammation secondary to another acute process in the pelvis noting that the appendix is not confidently identified and anatomically will be located in the same area in the absence of prior appendectomy please correlate with patient history physical exam blood work sitter for appendicitis versus PID versus severe vaginitis versus pelvic venous congestion syndrome, no evidence of any other acute kidney pathology. I had a long discussion/reexamination of the patient at the bedside, patient has a very benign abdominal exam, no abdominal pain, negative McBurney's point tenderness, soft nontender, I do believe the patient does not have clinical symptomatology consistent with appendicitis. Could have some degree of reactive lymphadenitis versus pelvic congestion syndrome, as patient said her bilateral flank pain/ pelvic pain , was pretty consistent yesterday and she has had this in the past. Patient denies any vaginal discharge vaginal bleeding, vaginal irritation, no new sexual contacts or risky sexual behaviors, no concern for any STI. I did offer vaginal/speculum exam to the patient at the bedside she declined at this time shared decision making utilized I believe this is appropriate. Will treat the patient for tonsillitis versus early peritonsillar abscess formation with a 875 mg p.o. Augmentin twice daily, will give first dose here in the emergency department, also give 10 mg IV dexamethasone for symptomatic relief. Patient was given very strict ED return precautions, patient voiced understanding and agreement with current treatment plan/discharge plan. Patient will follow-up with ear nose throat doctor and [facility] as well as PCP in the upcoming days/weeks. Critical Care Critical Care Time Critical Care Time: No
--- NOTE | 2025-04-27 18:45 | CT_ITS ---
PROCEDURE INFORMATION: Exam: CT Neck With Contrast Exam date and time: 04/27/2025 7:37 PM Age: 29 years old Clinical indication: Other: Tonsillar swelling; Additional info: Sore throat, fatigue, tonsillar swelling TECHNIQUE: Imaging protocol: Computed tomography of the neck with contrast. Radiation optimization: All CT scans at this facility use at least one of these dose optimization techniques: automated exposure control; mA and/or kV adjustment per patient size (includes targeted exams where dose is matched to clinical indication); or iterative reconstruction. Contrast material: ISOVUE; Contrast volume: 75 ml; Contrast route: IV; COMPARISON: No relevant prior studies available. FINDINGS: Salivary glands: Normal. Glands are normal in size. Pharynx: Heterogeneous enhancement of the tonsils compatible with tonsillitis. Hypoattenuating focus measuring 9 mm at the inferior margin of the left palatine tonsil could represent early tonsillar abscess. Larynx: Unremarkable. Epiglottis is normal. Thyroid: Normal. No enlarged or calcified nodules. Trachea: Visualized trachea is unremarkable. Lungs: Unremarkable as visualized. Lymph nodes: Level 2 level 3 bilateral reactive lymph nodes. Bones/joints: Unremarkable. No acute fracture. Soft tissues: Unremarkable. No significant soft tissue swelling. IMPRESSION: Heterogeneous enhancement of the tonsils compatible with tonsillitis. Hypoattenuating focus measuring 9 mm at the inferior margin of the left palatine tonsil could represent early tonsillar abscess.
--- NOTE | 2025-04-27 18:52 | CT_ITS ---
PROCEDURE INFORMATION: Exam: CT Abdomen And Pelvis With Contrast Exam date and time: 04/27/2025 7:40 PM Age: 29 years old Clinical indication: Abdominal pain; Additional info: Bilateral flank pain TECHNIQUE: Imaging protocol: Computed tomography of the abdomen and pelvis with contrast. Radiation optimization: All CT scans at this facility use at least one of these dose optimization techniques: automated exposure control; mA and/or kV adjustment per patient size (includes targeted exams where dose is matched to clinical indication); or iterative reconstruction. Contrast material: ISOVUE; Contrast volume: 75 ml; Contrast route: IV; COMPARISON: No relevant prior studies available. FINDINGS: Liver: Unremarkable. Gallbladder and biliary ducts: Unremarkable. Pancreas: Unremarkable. Spleen: Unremarkable. Adrenal glands: Unremarkable. Kidneys and ureters: Normal symmetric renal nephrograms. There is also excretion of intravenous contrast material into the bilateral renal collecting systems, which limits evaluation for renal stones. No renal stones identified. No hydronephrosis. Stomach and bowel: Unremarkable. Appendix: Cecum extends into the pelvis/right adnexa, but the appendix is not confidently identified due to crowding of pelvic structures. Intraperitoneal space: No significant free fluid. No pneumoperitoneum. Vasculature: Unremarkable. Lymph nodes: Unremarkable. Urinary bladder: Urinary bladder contains excreted intravenous contrast material and is otherwise unremarkable. Reproductive: Diffuse vaginal wall thickening and ill-defined fat stranding throughout stain bilateral adnexae. A physiologic corpus luteum is incidentally noted in the right ovary. Bones/joints: No evidence of acute osseous abnormality. Soft tissues: Unremarkable. IMPRESSION: 1. Diffuse vaginal wall thickening and ill-defined fat stranding throughout the bilateral adnexae. Findings are nonspecific and could represent pelvic venous congestion, pelvic inflammatory disease, severe vaginitis, or reactive inflammation secondary to another acute process in the pelvis, noting that the appendix is not confidently identified and anatomically would be located in this same area in the absence of a prior appendectomy. Please correlate with patient history, physical exam, blood work etc for appendicitis vs PID vs severe vaginitis vs pelvic venous congestion syndrome. 2. No evidence of acute kidney pathology.
[2025-04-27 19:05] LABS: Adenovirus,PCR Not Detected (NotDetected); Chlamydophila Pneumoniae, PCR Not Detected (NotDetected); Coronavirus 19, PCR Not Detected (NotDetected); Coronovirus HKU1,PCR Not Detected (NotDetected); Influenza A, PCR Not Detected (NotDetected); Influenza AH1, 2009 Not Detected (NotDetected); Influenza AH1, PCR Not Detected (NotDetected); Influenza AH3,PCR Not Detected (NotDetected); Influenza B, PCR Not Detected (NotDetected); Mycoplasma Pneumoniae, PCR Not Detected (NotDetected); Parainfluenza 1, PCR Not Detected (NotDetected); Parainfluenza 2, PCR Not Detected (NotDetected); Parainfluenza 3, PCR Not Detected (NotDetected); Parainfluenza 4, PCR Not Detected (NotDetected)
[2025-04-27 19:08] LABS: Hematocrit 36.2 % (37.0-47.0); Hemoglobin 12.1 g/dL (12.2-16.2); Immature Granulocytes % 0.3 %; Mean Corpuscular HGB Conc 33.4 g/dL (31.8-35.4); Mean Corpuscular Hemoglobin 29.3 pg (27.0-31.2); Mean Corpuscular Volume 87.7 fl (81-99); Nucleated Red Blood Cells % 0 %; Platelet Count 204 K/mm3 (142-424); Red Blood Count 4.13 M/mm3 (4.20-5.40); Red Cell Distribution Width-SD 37.8 fL; White Blood Count 7.0 K/mm3 (4.8-10.8)
[2025-04-27 19:11] LABS: Albumin Level 4.5 g/dl (3.5-5.0); Chloride 101 mmol/L (98-107); Potassium 3.7 mmoL/L (3.5-5.1); Sodium 134 mmol/L (136-145)
[2025-04-27 19:14] LABS: Alanine Aminotransferase 16 U/L (12-78); Albumin/Globulin Ratio 1.3 (1.1-1.8); Alkaline Phosphatase 75 U/L (38-126); Aspartate Amino Transferase 16 U/L (14-36); Bilirubin,Total 0.9 mg/dl (0.2-1.3); Blood Urea Nitrogen 10 mg/dl (7-17); Creatinine Clearance Estimated 129 mL/min (50-200); Creatinine,Serum 0.60 mg/dl (0.52-1.04); Estimated Glomerular Filt Rate 118 ml/min (>60); GFR (African American) 143 ML/MIN (>60); Globulin 3.5 g/dL (1.3-3.2); Total Protein,Serum 8.0 g/dl (6.3-8.2)
[2025-04-27 19:15] LABS: Calcium 8.9 mg/dl (8.4-10.2); Glucose 83 mg/dl (74-100)
--- NOTE | 2025-04-27 19:18 | PC.NURSE ---
Pt awake alert and oriented Skin pink warm and dry Resp full and easy Speech clear and appropriate. Report received from Sravanthi RN IV site without redness or edema
[2025-04-27 19:21] LABS: HCG Qualitative, Serum Negative (Negative)
[2025-04-27 19:24] LABS: Anion Gap 8.7 mEq/L (5-15); Carbon Dioxide 28 mmol/L (22.0-30.0)
[2025-04-27] MEDS: SODIUM CHLORIDE 0.9% 10ML SYR (RAD ONLY) 10 ML IV (19:38)
[2025-04-27] MEDS: IOPAMIDOL-370 (76%);100ML BOTTLE 150 ML IV (19:38)
[2025-04-27] MEDS: ACETAMINOPHEN 1,000MG/100ML VIAL 1000 MG IV (19:45)
[2025-04-27] MEDS: 0.9 % SODIUM CHLORIDE 1000ML 1,000 ML 999 ML IV (19:46)
--- NOTE | 2025-04-27 19:49 | PC.NURSE ---
Pt back from CT
[2025-04-27] MEDS: AMOXICILLIN/CLAVULANATE POTASSIUM 875/125MG TABLET 1 EACH PO (22:04)
[2025-04-27] MEDS: DEXAMETHASONE 4MG/ML 1ML VIAL 10 MG IV (22:04)
[2025-04-27 22:08] VITALS: BP 133/78; PULSE 1; RESP 16; TEMP 37.2; O2SAT 98
== END 2025-04-27 22:13 | disposition home or self-care (01) ==
PROVIDERS: Physician Assistant; Emergency Provider Student in an Organized Health Care Education/Training Program; PCP Internal Medicine
DX: J03.90 Acute tonsillitis, unspecified (principal); E87.1 Hypo-osmolality and hyponatremia; R10.A3 Flank pain, bilateral
CPT/HCPCS: 0223U; 70491; 74177; 80053; 84703; 85025; 87070; 87086; 96361; 96374; 96375; 99284; 99285; J0131; J1100; J7030; Q9967